=== PATIENT | female | born 1960 | race Caucasian/White ===

== ENCOUNTER → 2016-08-13 | Outpatient (CLI) | payer OTHER ==
--- NOTE | 2016-08-13 16:39 | MAMMOGRAPHY REPORT ---
BILATERAL DIGITAL SCREENING MAMMOGRAM TOMOSYNTHESIS WITH CAD: 08/13/2016 CLINICAL HISTORY: Routine screening. Patient has no complaints. TECHNIQUE: Breast tomosynthesis in addition to standard 2D mammography was performed. Current study was also evaluated with a Computer Aided Detection (CAD) system. COMPARISON: Comparison is made to exams dated: 07/04/2015 mammogram, 07/04/2015 ultrasound biopsy, 2015 ultrasound, 01/20/2014 mammogram, 12/07/2012 mammogram, and 12/03/2011 mammogram - [facility]. BREAST COMPOSITION: There are scattered areas of fibroglandular density in both breasts. FINDINGS: There are stable asymmetries in each breast. A stable circumscribed mass in the left upper outer posterior breast. Stable metallic biopsy marker in the 3:00 right breast. No new suspicious mass, architectural distortion or cluster of microcalcifications is seen. IMPRESSION: ACR BI-RADS CATEGORY 1: NEGATIVE There is no mammographic evidence of malignancy. A 1 year screening mammogram is recommended. The pa tient will receive written notification of the results. Approximately 10% of breast cancers are not detected with mammography. A negative mammographic report should not delay biopsy if a clinically suggestive mass is present. Susan Arshad M.D. ay/:08/13/2016 15:56:50 Website Project Manager: Mayelin BRADY)(M), [facility] letter sent: Normal 1/2 BI-RADS Code: ACR BI-RADS Category 1: Negative
== END | disposition home or self-care (01) ==
LOC: C.MAMM 15:02
PROVIDERS: ATTEND Physician Assistant
DX: Z12.31 Encounter for screening mammogram for malignant neoplasm of breast (principal)

== ENCOUNTER → 2016-12-12 | Outpatient (CLI) | payer OTHER ==
--- NOTE | 2016-12-12 10:22 | DIAGNOSTIC IMAGING REPORT ---
RIGHT NECK ULTRASONOGRAPHY CLINICAL HISTORY: Right neck mass COMPARISON STUDY: No previous studies for comparison. FINDINGS: There is an 18 x 13 x 15 mm hypoechoic nodule in the region of the right parotid. This contains internal vascularity and likely represents a pathologic lymph node. Fine-needle aspiration biopsy is recommended. IMPRESSION: The palpable abnormality within the right neck corresponds to an 18 mm hypoechoic nodule with internal vascularity. This likely represents a pathologic lymph node, and fine needle aspiration biopsy is recommended in follow-up. Electronically signed by: Timur Dao M.D. 12/12/2016 10:21 AM Dictated Date/Time: 12/12/2016 10:19 AM
== END | disposition home or self-care (01) ==
LOC: C.ULTR 09:41
PROVIDERS: ATTEND Internal Medicine
DX: R59.9 Enlarged lymph nodes, unspecified (principal)